=== PATIENT | female | born 1980 | race Two or more races ===

== ENCOUNTER 2023-08-02 12:16 | Emergency (ER) | payer OTHER ==
[~2023-08-02] VITALS: Ht 170.2 cm; Wt 81.2 kg
[~2023-08-02 12:16] MED LIST: AMPICILLIN TRI500 MG PO; LEVAQUIN750 MG PO; MACRODANTIN100 M1; TORADOL10 MG PO; URETRON DS1 TAB PO
[2023-08-02] MEDS ORDERED: PRAVASTATIN SOD40 MG (12:36)
== END 2023-08-02 13:49 | disposition home or self-care (01) ==
LOC: ER 12:17
DX: M54.2 Cervicalgia (principal); V89.2XXA Person injured in unspecified motor-vehicle accident, traffic, initial encounter; Z91.018 Allergy to other foods